=== PATIENT | female | born 1990 | race American Indian/Alaskan Native ===

== ENCOUNTER 2017-01-20 02:16 | Emergency (ER) | payer SELFPAY ==
--- NOTE | 2017-01-20 05:00 | XRay Report ---
FINAL REPORT PROCEDURE: XR HAND 3+V RT TECHNIQUE: RIGHT hand radiographs, AP, lateral, and oblique views. CPT 78509-HC HISTORY: hand pain COMPARISON: No prior studies are available for comparison. FINDINGS: Fracture (s) and/or Dislocation(s): None . Alignment: Normal . Joint space(s): Normal . Soft tissues: Normal . Bone mineralization: Normal . Foreign bodies: None . IMPRESSION: Normal Examination .
[2017-01-20 07:44] VITALS: BP 120/76
--- NOTE | 2017-01-20 08:56 | Emergency Department Report ---
HPI - General Chief Complaint: Extremity Problem,Nontraumatic Time Seen by Provider: 01/20/17 08:46 - HPI HPI: Patient is a 26-year-old female presents complaining of right wrist pain for the past 2 weeks. Patient states she had no injuries or trauma to the hand. Patient states pain is a shooting pain sometimes shoots up her arm to elbow. She said she takes Topamax for headaches and iron pills as needed. ED Past Medical Hx - Past Medical History Additional medical history: anemic - Surgical History Additional Surgical History: 3 c section and gallbladder removal - Medications Home Medications: Home Medications Medication Instructions Recorded Confirmed Last Taken Type Cyclobenzaprine [Flexeril] 10 mg PO QHS PRN #20 tablet 01/20/17 Unknown Rx Ibuprofen [Motrin] 800 mg PO Q8HR PRN #30 tablet 01/20/17 Unknown Rx ED Review of Systems ROS: Stated complaint: RIGHT HAND PAIN Other details as noted in HPI Constitutional: denies: chills, fever Eyes: denies: eye pain, eye discharge, vision change ENT: denies: ear pain, throat pain Respiratory: denies: cough, shortness of breath, wheezing Cardiovascular: denies: chest pain, palpitations Endocrine: no symptoms reported Gastrointestinal: denies: abdominal pain, nausea, diarrhea Genitourinary: denies: urgency, dysuria, discharge Musculoskeletal: denies: back pain, joint swelling, arthralgia Skin: denies: rash, lesions Neurological: denies: headache, weakness, paresthesias Psychiatric: denies: anxiety, depression Hematological/Lymphatic: denies: easy bleeding, easy bruising Physical Exam - Physical Exam Vital Signs: Vital Signs 01/20/17 01/20/17 01/20/17 02:28 02:32 07:43 Temperature 97.9 F 97.8 F 97.6 F Pulse Rate 66 68 67 Respiratory 18 18 20 Rate Blood Pressure 123/63 123/63 120/76 O2 Sat by Pulse 100 100 100 Oximetry Physical Exam: GENERAL: Alert and oriented x3, no apparent distress, Normal Gait, atraumatic. HEAD: Head is normocephalic and a-traumatic. LUNGS: Symetrical with respiration, No wheezing, no rales or crackles, CTAB. HEART: S1, S2 present, regular rate and rhythm without murmur, no rubs, no gallops. Non tender to palpation EXTREMITIES/MUSCULOSKELETAL: No cyanosis, clubbing, rash, lesions or edema. Full ROM bilaterally. UE Pulses 2+ bilaterally. UE 5+ strength bilaterally, phalanx test positive. His nonedematous, nonerythematous, no bleeding, no deformity seen. NEUROLOGIC: The patient is cooperative with no focal neurologic deficits. Cranial nerves II through XII are grossly intact. Normal speech. Normal sensation in bilateral upper and lower extremities, No loss of sensation, SKIN: Warm and dry, No lesions, No ulceration or induration present. ED Course Vital Signs 01/20/17 01/20/17 01/20/17 02:28 02:32 07:43 Temperature 97.9 F 97.8 F 97.6 F Pulse Rate 66 68 67 Respiratory 18 18 20 Rate Blood Pressure 123/63 123/63 120/76 O2 Sat by Pulse 100 100 100 Oximetry ED Medical Decision Making - Medical Decision Making 26-year-old female presented right wrist arthralgias ED course: The patient states she got a wrist brace yesterday to try to make it better. I discussed the patientis fine and can use as needed. I discussed the patient she'll be going home on Flexeril and states for the pain. I discussed the patient Flexeril make her drowsy and not to take with alcohol or while driving. She states that she understands instructions given Vital signs are normal patient is in no acute distress. Critical care attestation.: If time is entered above; I have spent that time in minutes in the direct care of this critically ill patient, excluding procedure time. ED Disposition Clinical Impression: Carpal tunnel syndrome of right wrist, Arthralgia of wrist, right Disposition: [id number] TO HOME OR SELFCARE Is pt being admited?: No Does the pt Need Aspirin: No Condition: Stable Instructions: Carpal Tunnel Syndrome (ED), Arthralgia (ED) Additional Instructions: Continued superior wrist brace as needed. Apply heat to this 3 times a day. Prescriptions: Cyclobenzaprine [Flexeril] 10 mg PO QHS PRN #20 tablet PRN Reason: Muscle Spasm Ibuprofen [Motrin] 800 mg PO Q8HR PRN #30 tablet PRN Reason: Pain Referrals: PRIMARY CARE, [Primary Care Provider] - 3-5 Days [facility] [Outside] - 3-5 Days [facility] [Outside] - 3-5 Days [facility] [Outside] - 3-5 Days Forms: Accompanied Note, Work/School Release Form(ED) Time of Disposition: 09:03
== END 2017-01-20 09:13 | disposition home or self-care (01) ==
LOC: ED 02:16
DX: G56.01 Carpal tunnel syndrome, right upper limb (principal); M25.531 Pain in right wrist
CPT/HCPCS: 99283